=== PATIENT | male | born 1975 | race Caucasian/White ===

== ENCOUNTER 2023-04-06 19:35 | Emergency (ER) | payer SELFPAY ==
[2023-04-06 19:57] VITALS: BP 122/81; PULSE 80; RESP 16; TEMP 98.8; BMI 25.7
[2023-04-06] MEDS ORDERED: CEPHALEXIN MONOHYDRATE 500 MG CAPSULE (UD) ONE (20:24)
[2023-04-06] MEDS: CEPHALEXIN MONOHYDRATE 500 MG CAPSULE (UD) PO ONE (20:25)
== END 2023-04-06 20:38 | disposition home or self-care (01) ==
LOC: FER 19:35
DX: L03.011 Cellulitis of right finger (principal); M79.641 Pain in right hand; M79.89 Other specified soft tissue disorders
CPT/HCPCS: 99283-25